=== PATIENT | female | born 1985 | race Caucasian/White ===

== ENCOUNTER 2017-06-12 04:24 | Emergency (ER) | payer BC, OTHER ==
[2017-06-12 04:25] VITALS: BMI 29.2
[2017-06-12 04:36] VITALS: TEMP 97.6
--- NOTE | 2017-06-12 04:48 | ED PDOC ---
Arrival/HPI - General Chief Complaint: Female Genitourinary Time Seen by Provider: 06/12/17 04:40 Historian: Patient - History of Present Illness Narrative History of Present Illness (Text): 06/12/17 04:50 31 year old female, whose past medical history includes renal calculi, who presents to the emergency department complaining of right flank pain radiating to right abdomen since earlier tonight. Patient states symptoms are consistent with previous kidney stone symptoms. Patient denies any recent strenuous activity, fever, chills, nausea, vomiting, diarrhea, urinary symptoms, neck pain , headache, dizziness, or any other complaints. Time/Duration: Other (tonight) Symptom Onset: Gradual Symptom Course: Unchanged Activities at Onset: Light Context: Home Past Medical History - Provider Review Nursing Documentation Reviewed: Yes - Psychiatric Hx Depression: No Hx Emotional Abuse: No Hx Physical Abuse: No Hx Substance Use: No - Suicidal Assessment Feels Threatened In Home Enviroment: No Family/Social History - Physician Review Nursing Documentation Reviewed: Yes Family/Social History: No Known Family HX Smoking Status: Never Smoked Hx Alcohol Use: No Hx Substance Use: No Allergies/Home Meds Allergies/Adverse Reactions: Allergies No Known Allergies Allergy (Verified 06/12/17 04:38) Review of Systems - Physician Review All systems were reviewed & negative as marked: Yes - Review of Systems Constitutional: Normal. absent: Fevers, Other (chills) Respiratory: Normal. absent: SOB Cardiovascular: Normal. absent: Chest Pain Gastrointestinal: absent: Diarrhea, Nausea, Vomiting Genitourinary Female: Normal. absent: Dysuria, Hematuria Musculoskeletal: Back Pain (+right flank pain). absent: Neck Pain Neurological: Normal. absent: Headache, Dizziness Physical Exam Vital Signs Reviewed: Yes Vital Signs Temp Pulse Resp BP Pulse Ox 06/12/17 04:35 97.6 F 70 18 141/89 100 Temperature: Afebrile Blood Pressure: Normal Pulse: Regular Respiratory Rate: Normal Appearance: Positive for: Well-Appearing, Non-Toxic Pain Distress: None Mental Status: Positive for: Alert and Oriented X 3 - Systems Exam Head: Present: Atraumatic, Normocephalic Pupils: Present: PERRL Extroacular Muscles: Present: EOMI Conjunctiva: Present: Normal Mouth: Present: Moist Mucous Membranes Neck: Present: Normal Range of Motion Respiratory/Chest: Present: Clear to Auscultation Cardiovascular: Present: Regular Rate and Rhythm, Normal S1, S2. No: Murmurs Abdomen: Present: Normal Bowel Sounds. No: Tenderness, Distention, Peritoneal Signs Back: Present: Normal Inspection. No: CVA Tenderness, Midline Tenderness, Paraspinal Tenderness Upper Extremity: Present: Normal Inspection. No: Cyanosis, Edema Lower Extremity: Present: Normal Inspection. No: Edema Neurological: Present: GCS=15, CN II-XII Intact, Speech Normal Skin: Present: Warm, Dry, Normal Color. No: Rashes Psychiatric: Present: Alert, Oriented x 3, Normal Insight, Normal Concentration Medical Decision Making ED Course and Treatment: 06/12/17 04:50 Impression: 31 year old female present for right flank pain radiating to right abdomen. Plan: -- CT Abdomen/Pelvis -- Labs -- Urinalysis -- IV Fluids -- Toradol -- Reassess and disposition Progress Notes: 06/12/17 06:25 Reviewed radiology, CT Abdomen and Pelvis shows: 1. Hydronephrosis right kidney due to an obstructing 3 mm stone in the distal right ureter. 2. Scattered mesenteric lymph nodes some of which are upper limits of normal in size and may represent mesenteric adenitis. 3. Mild mucosal thickening in the sigmoid colon and rectum which may be due to its decompressed state or due to mild colitis. 06/12/17 06:35 Pt. remained pain free following treatment in ED. - Lab Interpretations Lab Results: 06/12/17 04:45 06/12/17 04:45 Lab Results 06/12/17 06:04: Urine Color Yellow, Urine Appearance Clear, Urine pH 6.0, Ur Specific [place] 1.025, Urine Protein Negative, Urine Glucose (UA) Negative, Urine Ketones Negative, Urine Blood Negative, Urine Nitrate Negative, Urine Bilirubin Negative, Urine Urobilinogen 0.2, Ur Leukocyte Esterase Small H, Urine RBC 0 - 2, Urine WBC 1 - 3, Ur Epithelial Cells 3 - 4, Urine Bacteria Trace, Urine HCG, Qual Negative 06/12/17 04:45: WBC 6.0, RBC 4.76, Hgb 11.6 L, Hct 36.5, MCV 76.7 L, MCH 24.4 L , MCHC 31.8, RDW 16.6 H, Plt Count 290, MPV 9.3 06/12/17 04:45: Sodium 142, Potassium 3.7, Chloride 106, Carbon Dioxide 21, Anion Gap 19, BUN 9, Creatinine 0.7, Est GFR ( Amer) > 60, Est GFR (Non- Af Amer) > 60, Random Glucose 96, Calcium 8.7, Total Bilirubin 0.4, AST 24, ALT 33, Alkaline Phosphatase 89, Total Protein 8.1, Albumin 4.4, Globulin 3.7, Albumin/Globulin Ratio 1.2, Lipase 82 I have reviewed the lab results: Yes - RAD Interpretation Narrative RAD Interpretations (Text): CT Abdomen and Pelvis shows: Lower thorax: No acute findings. ABDOMEN: Liver: Unremarkable. Gallbladder and bile ducts: Unremarkable. No calcified stones. No ductal dilation. Pancreas: Unremarkable. No ductal dilation. Spleen: Unremarkable. No splenomegaly. Adrenals: Unremarkable. No mass. Kidneys and ureters: Hydronephrosis right kidney due to an obstructing 3 mm stone in the distal right ureter. No stones within either kidney. No stone in the left ureter. Stomach and bowel: Mild mucosal thickening in the sigmoid colon and rectum which may be due to its decompressed state or due to mild colitis. No obstruction. Appendix: No findings to suggest acute appendicitis. PELVIS: Bladder: Unremarkable. No stones. Reproductive: Unremarkable as visualized. ABDOMEN and PELVIS: Intraperitoneal space: Unremarkable. No free air. No significant fluid collection. Bones/joints: No acute fracture. No dislocation. Soft tissues: Unremarkable. Vasculature: Unremarkable. No abdominal aortic aneurysm. Lymph nodes: Scattered mesenteric lymph nodes some of which are upper limits of normal in size and may represent mesenteric adenitis. IMPRESSION: 1. Hydronephrosis right kidney due to an obstructing 3 mm stone in the distal right ureter. 2. Scattered mesenteric lymph nodes some of which are upper limits of normal in size and may represent mesenteric adenitis. 3. Mild mucosal thickening in the sigmoid colon and rectum which may be due to its decompressed state or due to mild colitis. Radiology Orders: 06/12/17 04:52 ABD & PELVIS W/O PO OR IV CONT [CT] Stat Music Intern: Radiologist - Medication Orders Current Medication Orders: Discontinued Medications Sodium Chloride (Sodium Chloride 0.9%) 1,000 mls @ 999 mls/hr IV .Q1H1M STA Stop: 06/12/17 05:51 Last Admin: 06/12/17 04:59 Dose: 999 mls/hr Ketorolac Tromethamine (Toradol) 30 mg IVP ONCE ONE Stop: 06/12/17 04:52 Last Admin: 06/12/17 04:59 Dose: 30 mg Morphine Sulfate (Morphine) 2 mg IVP STAT STA Stop: 06/12/17 05:20 Last Admin: 06/12/17 05:29 Dose: 2 mg Ondansetron HCl (Zofran Inj) 4 mg IVP ONCE ONE Stop: 06/12/17 05:20 Last Admin: 06/12/17 05:29 Dose: 4 mg - Scribe Statement The provider has reviewed the documentation as recorded by the Nikita Arora training with Kaitlin Hassan All medical record entries made by the Naraibmarquez were at my direction and personally dictated by me. I have reviewed the chart and agree that the record accurately reflects my personal performance of the history, physical exam, medical decision making, and the department course for this patient. I have also personally directed, reviewed, and agree with the discharge instructions and disposition. Disposition/Present on Arrival - Present on Arrival Any Indicators Present on Arrival: No History of DVT/PE: No History of Uncontrolled Diabetes: No Urinary Catheter: No History of Decub. Ulcer: No History Surgical Site Infection Following: None - Disposition Have Diagnosis and Disposition been Completed?: Yes Diagnosis: Nephrolithiasis, Renal colic on right side Disposition: HOME/ ROUTINE Disposition Time: 06:36 Patient Plan: Discharge Patient Problems: Current Active Problems Problem Status Onset Nephrolithiasis Acute Renal colic on right side Acute Condition: GOOD Discharge Instructions (ExitCare): Kidney Stones (ED), Renal Colic (ED) Additional Instructions: Drink plenty of liquids/meds as prescribed/follow up with the urologist this week Prescriptions: oxyCODONE/Acetaminophen [Percocet 5/325 mg Tab] 1 ea PO Q6 PRN #12 tab PRN Reason: Pain, Moderate (4-7) Referrals: Radha Youssef MD [Primary Care Provider] - Follow up with primary Juan Shen MD [Staff Provider] - Follow up with primary Forms: [employer] (S[place]i), WORK NOTE
[2017-06-12] MEDS ORDERED: Sodium Chloride 0.9% 1,000 ML IV STA (04:51)
[2017-06-12 05:10] LABS: ALB/GLOB RATIO 1.2 (1.1-1.8); ALBUMIN 4.4 g/dL (3.0-4.8); ALT/SGPT 33 U/L (7-56); AST/SGOT 24 U/L (15-39); BLOOD UREA NITROGEN 9 mg/dL (7-21); CALCIUM 8.7 mg/dL (8.4-10.5); GFR AFRICAN-AMERICAN > 60; GFR NON-AFRICAN AMERICAN > 60; LIPASE 82 U/L (23-300)
[2017-06-12] MEDS ORDERED: Morphine 2 mg/ml ISec IVP STA (05:19)
[2017-06-12 05:25] LABS: HEMOGLOBIN 11.6 g/dL (12.0-16.0); MEAN CELL VOLUME 76.7 fl (80.0-105.0); MEAN CORPUSCULAR HEMOGLOBIN 24.4 pg (25.0-35.0); MEAN CORPUSCULAR HGB CONC 31.8 g/dl (31.0-37.0); MEAN PLATELET VOLUME 9.3 fl (7.0-11.0); RBC 4.76 10^6/uL (3.5-6.1); RED CELL DISTRIBUTION WIDTH 16.6 % (11.5-14.5)
[2017-06-12 06:17] LABS: URINE BILIRUBIN NEGATIVE (NEGATIVE); URINE BLOOD NEGATIVE (NEGATIVE); URINE GLUCOSE (UA) NEGATIVE (NEGATIVE); URINE LEUKOCYTE ESTERASE SMALL Leu/uL (NEGATIVE); URINE NITRATE NEGATIVE (NEGATIVE); URINE PROTEIN NEGATIVE mg/dL (<30 mg/dL); URINE UROBILINOGEN 0.2 E.U./dL (<1 E.U./dL)
[2017-06-12 06:25] LABS: HCG,QUALITATIVE URINE NEGATIVE (NEGATIVE)
[2017-06-12 06:26] LABS: URINE APPEARANCE CLEAR (CLEAR); URINE COLOR YELLOW (YELLOW)
[2017-06-12 06:32] LABS: URINE BACTERIA TRACE (NEG); URINE RBC 0 - 2 /hpf (0-2)
[2017-06-12 06:51] VITALS: BP 114/76; PULSE 76; RESP 16; O2SAT 99
--- NOTE | 2017-06-12 08:58 | CT ---
PROCEDURE: CT Abdomen and Pelvis without intravenous contrast HISTORY: right flank pain COMPARISON: None. TECHNIQUE: Without contrast. Contrast Dose: Radiation dose: Total exam DLP = 428 mGy-cm. This CT exam was performed using one or more of the following dose reduction techniques: Automated exposure control, adjustment of the mA and/or kV according to patient size, and/or use of iterative reconstruction technique. FINDINGS: LOWER THORAX: Unremarkable. LIVER: Unremarkable. No gross lesion or ductal dilatation. GALLBLADDER AND BILE DUCTS: Unremarkable. PANCREAS: Unremarkable. No gross lesion or ductal dilatation. SPLEEN: Unremarkable. ADRENALS: Unremarkable. No mass. KIDNEYS AND URETERS: There is mild right-sided hydronephrosis. The ureter is mildly dilated. There is a 3 mm stone in the distal right ureter seen best on coronal image 61. VASCULATURE: Unremarkable. No aortic aneurysm. BOWEL: Unremarkable. No obstruction. No gross mural thickening. APPENDIX: Unremarkable. Normal appendix. PERITONEUM: Unremarkable. No free fluid. No free air. LYMPH NODES: Unremarkable. No enlarged lymph nodes. BLADDER: Unremarkable. REPRODUCTIVE: Unremarkable. BONES: No acute fracture. OTHER FINDINGS: The report concurs with the preliminary [facility] report IMPRESSION: Mild right-sided hydronephrosis secondary to a distal ureteral 3 mm stone
== END 2017-06-12 06:50 | disposition home or self-care (01) ==
LOC: ED 04:24
DX: N20.0 Calculus of kidney (principal); N23 Unspecified renal colic
CPT/HCPCS: 74176; 80053; 81001; 83690; 84703; 85027; 96361; 96374; 96375; 99284; J1885; J2270; J2405; J7040